=== PATIENT | female | born 1940 | race Caucasian/White ===

== ENCOUNTER → 2017-11-09 | Outpatient (CLI) | payer MEDICARE, OTHER | END | disposition home or self-care (01) | LOC: HKI 08:51 | DX: M79.661 Pain in right lower leg (principal); R20.2 Paresthesia of skin; I10 Essential (primary) hypertension; E03.9 Hypothyroidism, unspecified; Z85.6 Personal history of leukemia; M06.9 Rheumatoid arthritis, unspecified; M10.9 Gout, unspecified | CPT/HCPCS: 73502; 73562-50 ==